=== PATIENT | female | born 1975 | race Caucasian/White ===

== ENCOUNTER 2020-06-05 07:15 | Inpatient (IN) | payer OTHER, SELFPAY ==
--- NOTE | ~2020-06-05 | CT_ITS ---
EXAMINATION: CT ABDOMEN AND PELVIS WITH CONTRAST CLINICAL INFORMATION: Upper abdominal pain COMPARISON: December 18, 2017 TECHNIQUE: Multidetector volumetric images were obtained from the superior aspect of the liver through the pubic symphysis following administration 85 mL of Omnipaque 350 intravenous contrast. Sagittal and coronal reformatted images were obtained on the technologist's workstation. Oral contrast: No This CT examination was performed using dose optimization techniques as appropriate, variously including the following: *Automated exposure control *Adjustment of mA and/or kV according to patient size (this includes techniques or standardized protocols for targeted exams where dose is matched to indication/reason for exam; i.e. extremities or head) *Use of iterative reconstruction technique DLP: 474 mGy-cm FINDINGS: LUNG BASES: No pneumothorax or pleural effusion seen. There is a small fluid collection seen adjacent to the right pericardium measuring approximately 1.4 x 1.3 cm in size which may represent a pericardial cyst. LIVER, GALLBLADDER, AND BILIARY TREE: The liver is normal in size, shape, and attenuation. Liver is prominent at 18 cm in vertical span. No focal hepatic lesion or biliary ductal dilatation is present. The gallbladder is unremarkable with no evidence of radiopaque gallstones, gallbladder wall thickening, or obvious pericholecystic inflammatory changes. PANCREAS: Unremarkable. SPLEEN: Unremarkable. ADRENAL GLANDS: Unremarkable. KIDNEYS AND URETERS: The kidneys are normal in size, shape, and attenuation. No hydronephrosis, hydroureter, or calculi seen. No perinephric stranding. BLADDER: Unremarkable. GASTROINTESTINAL TRACT: No dilated loops of large or small bowel are evident. No free air or free fluid is seen. There is no evidence of acute diverticulitis. The appendix is visualized and appears unremarkable. There is some mild hazy density seen within the mesentery near the region of the origin of the celiac axis of uncertain etiology or significance. ABDOMINAL WALL: No significant hernia is appreciated. LYMPH NODES: No lymphadenopathy is appreciated. VASCULAR: The portal, splenic, superior mesenteric, and inferior mesenteric no abdominal aortic aneurysm. PELVIC VISCERA: Unremarkable. OSSEOUS STRUCTURES: No suspicious destructive bony lesions identified. There is sacralization of L5. CT/CT abdomen pelvis w con IMPRESSION: No evidence of ileus or obstruction. No evidence of acute pancreatitis or acute cholecystitis. Mild hazy density about the origin of the celiac axis which may be related to small focus of mesenteritis or possible prominence of the celiac plexus of uncertain significance.
--- NOTE | ~2020-06-05 | XR_ITS ---
EXAMINATION: XR CHEST CLINICAL INFORMATION: Chest pain COMPARISON: None TECHNIQUE: Frontal view of the chest was obtained. FINDINGS: No significant abnormality is noted involving the heart, lungs, mediastinum, bony thorax or soft tissues. XR/XR chest 1V IMPRESSION: Unremarkable chest examination.
[2020-06-05 07:21] VITALS: BP 144/72; PULSE 94; RESP 20; TEMP 36.6; O2SAT 99; BMI 23.1
--- NOTE | 2020-06-05 07:29 | ED.GENADULT ---
HPI - General Adult General Chief complaint: General Medical Stated complaint: CHEST PAIN Time Seen by Provider: 06/05/20 07:29 Source: patient Mode of arrival: ambulatory Limitations: no limitations Related Data Allergies Allergy/AdvReac Type Severity Reaction Status Date / Time No Known Allergies Allergy Unverified 11/11/19 15:08 [No Known Allergies*] Physical Exam Vital Signs: Vital Signs: Last Vital Signs Temp 98 F 06/05/20 07:21 Pulse 94 06/05/20 07:21 Resp 20 06/05/20 07:21 BP 144/72 H 06/05/20 07:21 Pulse Ox 99 06/05/20 07:21 Body Mass Index 23.1
--- NOTE | 2020-06-05 07:37 | ECG_ITS ---
Test Reason : CP Blood Pressure : / mmHG Vent. Rate : 082 BPM Atrial Rate : 082 BPM P-R Int : 132 ms QRS Dur : 082 ms QT Int : 376 ms P-R-T Axes : 080 075 068 degrees QTc Int : 439 ms Normal sinus rhythm Normal ECG No previous ECGs available Referred By: Neha Hanks Electronically Signed By:LYNN CHERRY
--- NOTE | 2020-06-05 07:45 | ED_ITS ---
HPI - Abdominal Pain General Chief Complaint: General Medical Stated Complaint: CHEST PAIN Time Seen by Provider: 06/05/20 07:29 Source: patient Mode of arrival: ambulatory Limitations: no limitations History of Present Illness HPI narrative: 45 yo female no sig PMH here with upper abdominal pain and burning in lower back c/o nausea no OCPs, no travel, no trauma no prior events of this MD elicited complaint: abdominal pain Pertinent past history: none Onset (ago): day(s) (2) Pain Consistency: constant Location: epigastric Severity: moderate Quality: fullness and burning Radiation: back Migration to: no migration Exacerbating factors: movement Relieving factors: nothing Associated symptoms: nausea Related Data Allergies Allergy/AdvReac Type Severity Reaction Status Date / Time No Known Allergies Allergy Unverified 11/11/19 15:08 [No Known Allergies*] Review of Systems Review of Systems Constitutional : No Weight loss, No Fever, No Chills ENT/Mouth : No sore throat, No Rhinorrhea Eyes: No Swelling, No Redness Cardiovascular : No Chest Pain, No SOB, NoEdema Respiratory : No Cough, No Sputum, No Wheezing Gastrointestinal : pos Nausea, no Vomiting, no Diarrhea, positive abdominal Pain, No Hematochezia, No Melena Genitourinary : No Dysuria, No Urinary Frequency, No Hematuria, No Urgency Musculoskeletal : No joint pain, No Myalgias, No Joint Swelling, pos back pain Skin : No Skin Lesions, No rash Neuro : No Weakness, No Numbness, No Dizziness, No Headache Psych : No Anxiety/Panic, No Depression Heme/Lymph: No Bruising, No Lymphadenopathy Endocrine : No Polyuria, No Polydipsia All other systems reviewed and are negative. Physical Exam Vital Signs: Vital Signs: Last Vital Signs Temp 98 F 06/05/20 07:21 Pulse 94 06/05/20 07:21 Resp 18 06/05/20 08:09 BP 144/72 H 06/05/20 07:21 Pulse Ox 99 06/05/20 07:21 Body Mass Index 23.1 Appearance: Alert. Oriented X3. No acute distress. Eyes: Pupils equal, round and reactive to light. ENT: Pharynx normal. Neck: Normal inspection. Neck supple. CVS: Normal heart rate and rhythm. Pulses normal. Respiratory: No respiratory distress. Breath sounds normal. Abdomen: Soft and moderate epigastric ttp no rebound or guarding Skin: Skin warm and dry. Normal skin color. Normal skin turgor. Extremities: No lower extremity edema. No calf ttp Neuro: Oriented X 3. No motor deficit. No sensory deficit. Course Course Course Narrative: discussed with Dr. Munguia given degree of pain - will see in ED 1040am Dr. Munguia will admit for pain control MDM - Abdominal Pain MDM Narrative Medical decision making narrative: 45 yo female no sig PMH reports upper abdominal pain and lower back pain without known injury or precipitating events - no b/b incontinence, no saddle anesthesia - no prior events like this she has tender epigastric area - at this time labs, UA, EKG, CXR, troponin x 1, IV morphine for pain, CT scan to evalute upper abdomen and pancreas, dispo per results and findings Differential Diagnosis Differential diagnosis: Likely abdominal pain, gastritis, pancreatitis and peptic ulcer disease Lab Data Result diagrams: 06/05/20 07:49 06/05/20 07:49 Labs: Lab Results 06/05/20 06/05/20 06/05/20 Range/Units 07:49 07:49 07:49 WBC 8.8 (4.8-10.8) X10*3/uL RBC 4.40 (4.20-5.50) X10*6/uL Hgb 13.4 (12.0-16.0) g/dl Hct 41.0 (37-47) % MCV 93.2 (80-98) fL MCH 30.5 (27.0-33.0) pg MCHC 32.7 (31.0-35.0) g/dl RDW 13.2 (11.0-16.0) % Plt Count 282 (160-400) X10*3/uL MPV 10.0 (9.4-12.3) fL Immature Gran % (Auto) 0.2 (0.0-0.4) % Neut % (Auto) 65.0 (45-73) % Lymph % (Auto) 24.9 (20-40) % [place] % (Auto) 7.1 (2-11) % Eos % (Auto) 1.7 (0-4) % Baso % (Auto) 1.1 (0-2) % Lymph # (Auto) 2.2 (1.2-4.9) X10*3/uL [place] # (Auto) 0.6 (0.1-1.2) X10*3/uL Eos # (Auto) 0.2 (0.0-0.4) X10*3/uL Baso # (Auto) 0.1 (0.0-0.2) X10*3/uL Abs Immat Gran (auto) 0.02 (0.00-0.03) X10*3/uL Absolute Neuts (auto) 5.7 (2.0-8.3) X10*3/uL Absolute Nucleated RBC 0.000 (0.0-0.012) X10*3/uL Nucleated RBC % (auto) 0.0 (0.0-0.2) /100WBC Hold Blue Top SEE NOTE Sodium 140 (135-145) mmol/L Potassium 4.2 (3.3-5.1) mmol/L Chloride 106 (96-108) mmol/L Carbon Dioxide 26 (22-29) mmol/L Anion Gap 12 (12-20) BUN 15 (9-16) mg/dL Creatinine 0.71 (0.5-1.4) mg/dL Estim Creat Clear Calc 91.6 Estimated GFR > 60 Random Glucose 97 (60-115) mg/dL Calcium 8.5 (8.4-10.2) mg/dL Magnesium 2.2 (1.6-2.6) mg/dL Total Bilirubin 0.2 (0.0-1.0) mg/dL Direct Bilirubin < 0.2 (0.0-0.5) mg/dL AST 14 (5-31) U/L ALT 13 (0-31) U/L Alkaline Phosphatase 63 (39-117) U/L Troponin I High Sens (<3.5-17.0) ng/L Total Protein 6.6 (6.5-8.0) g/dL Albumin 4.2 (3.5-5.0) g/dL Lipase 11 (8-78) U/L Urine Color Urine Appearance Urine pH (5.0-8.0) Ur Specific [place] (1.005-1.025) Urine Protein (NEG-TRACE) MG/DL Urine Glucose (UA) (NEG) MG/DL Urine Ketones (NEG) MG/DL Urine Blood (NEG) Urine Nitrite (NEG) Ur Leukocyte Esterase (NEG) Urine RBC (0) /HPF Urine WBC (0-4) /HPF Ur Squamous Epith Cells /LPF Urine Bacteria 06/05/20 06/05/20 Range/Units 07:49 08:08 WBC (4.8-10.8) X10*3/uL RBC (4.20-5.50) X10*6/uL Hgb (12.0-16.0) g/dl Hct (37-47) % MCV (80-98) fL MCH (27.0-33.0) pg MCHC (31.0-35.0) g/dl RDW (11.0-16.0) % Plt Count (160-400) X10*3/uL MPV (9.4-12.3) fL Immature Gran % (Auto) (0.0-0.4) % Neut % (Auto) (45-73) % Lymph % (Auto) (20-40) % [place] % (Auto) (2-11) % Eos % (Auto) (0-4) % Baso % (Auto) (0-2) % Lymph # (Auto) (1.2-4.9) X10*3/uL [place] # (Auto) (0.1-1.2) X10*3/uL Eos # (Auto) (0.0-0.4) X10*3/uL Baso # (Auto) (0.0-0.2) X10*3/uL Abs Immat Gran (auto) (0.00-0.03) X10*3/uL Absolute Neuts (auto) (2.0-8.3) X10*3/uL Absolute Nucleated RBC (0.0-0.012) X10*3/uL Nucleated RBC % (auto) (0.0-0.2) /100WBC Hold Blue Top Sodium (135-145) mmol/L Potassium (3.3-5.1) mmol/L Chloride (96-108) mmol/L Carbon Dioxide (22-29) mmol/L Anion Gap (12-20) BUN (9-16) mg/dL Creatinine (0.5-1.4) mg/dL Estim Creat Clear Calc Estimated GFR Random Glucose (60-115) mg/dL Calcium (8.4-10.2) mg/dL Magnesium (1.6-2.6) mg/dL Total Bilirubin (0.0-1.0) mg/dL Direct Bilirubin (0.0-0.5) mg/dL AST (5-31) U/L ALT (0-31) U/L Alkaline Phosphatase (39-117) U/L Troponin I High Sens < 3.5 (<3.5-17.0) ng/L Total Protein (6.5-8.0) g/dL Albumin (3.5-5.0) g/dL Lipase (8-78) U/L Urine Color STRAW Urine Appearance CLEAR Urine pH 6.5 (5.0-8.0) Ur Specific [place] 1.010 (1.005-1.025) Urine Protein NEG (NEG-TRACE) MG/DL Urine Glucose (UA) NEG (NEG) MG/DL Urine Ketones NEG (NEG) MG/DL Urine Blood TRACE (NEG) Urine Nitrite NEG (NEG) Ur Leukocyte Esterase NEG (NEG) Urine RBC 0-2 (0) /HPF Urine WBC 0-2 (0-4) /HPF Ur Squamous Epith Cells TRACE /LPF Urine Bacteria Not Reportable ECG Data Attestation: I personally reviewed and interpreted this ECG as follows: ECG interpretation date: 06/05/20 ECG interpretation time: 07:45 Interpretation: Rate: 82 Rhythm: NSR [place]: normal Normal P waves. Normal KRIS. Normal QRS complex. ST T wave : nonspecific, no HENRY qTC: normal prior studies: no acute ischemia The study has been interpreted contemporaneously by me. . Discharge Plan Discharge Clinical Impression: Abdominal pain Patient Disposition: Admitted As Inpatient [facility] [place] Past Medical History Attestation statement: The following information was validated with the patient. Medical History (Updated 06/05/20 @ 12:29 by Neha Hanks DO) No active medical problems Surgical History (Updated 06/05/20 @ 07:48 by Neha Hanks DO) S/P panniculectomy Social History Social History Alcohol intake: never Smoking Status: Former smoker Use of substances other than those prescribed or required for medical reasons: No Advance Directives: Yes Advance Directives Information Provided: Yes Advance Directives on File: No
[2020-06-05 07:56] LABS: MANUAL DIFF FLAG NO
[2020-06-05 07:57] LABS: Basophils Absolute Auto 0.1 X10*3/uL (0.0-0.2); Basophils Percent Auto 1.1 % (0-2); Eosinophils Absolute Auto 0.2 X10*3/uL (0.0-0.4); Eosinophils Percent Auto 1.7 % (0-4); Hemoglobin 13.4 g/dl (12.0-16.0); Imm Gran Abs Auto 0.02 X10*3/uL (0.00-0.03); Imm Gran Pct Auto 0.2 % (0.0-0.4); Lymphocytes Absolute Auto 2.2 X10*3/uL (1.2-4.9); Lymphocytes Percent Auto 24.9 % (20-40); Mean Corpuscular HGB Conc 32.7 g/dl (31.0-35.0); Mean Corpuscular Hemoglobin 30.5 pg (27.0-33.0); Mean Corpuscular Volume 93.2 fL (80-98); Monocytes Absolute Auto 0.6 X10*3/uL (0.1-1.2); Monocytes Percent Auto 7.1 % (2-11); Neutrophils Absolute Auto 5.7 X10*3/uL (2.0-8.3); Platelet Count 282 X10*3/uL (160-400); Red Cell Distribution Width 13.2 % (11.0-16.0); White Blood Count 8.8 X10*3/uL (4.8-10.8)
[2020-06-05 08:09] VITALS: RESP 18
[2020-06-05] MEDS: 0.9 % Sodium Chloride 1,000 ML 999 ML IVCONT (08:09)
[2020-06-05] MEDS: Famotidine/PF 20 MG/2 ML VIAL IVPUSH (08:09)
[2020-06-05] MEDS: Morphine Sulfate 4 MG/ML CARTRIDGE IVPUSH (08:09)
[2020-06-05] MEDS: ondansetron HCL 4 MG/2 ML VIAL IVPUSH (08:09)
[2020-06-05 08:30] LABS: Glucose Urine UA NEG (NEG); Leukocyte Esterase Urine NEG (NEG); Nitrite Urine NEG (NEG); PH 6.5 (5.0-8.0); Urine Blood TRACE (NEG); Urine Ketones NEG (NEG); Urine Protein NEG (NEG-TRACE)
[2020-06-05 08:30] LABS: Alanine Aminotransferase 13 U/L (0-31); Albumin Level 4.2 g/dL (3.5-5.0); Alkaline Phosphatase 63 U/L (39-117); Anion Gap 12 (12-20); Aspartate Amino Transferase 14 U/L (5-31); Bilirubin Direct < 0.2 mg/dL (0.0-0.5); Bilirubin Total 0.2 mg/dL (0.0-1.0); Blood Urea Nitrogen 15 mg/dL (9-16); Calcium 8.5 mg/dL (8.4-10.2); Carbon Dioxide 26 mmol/L (22-29); Chloride 106 mmol/L (96-108); Creatinine Clr Calc Pharmacy 91.6; Estimated Glomerular Filt Rate > 60; Glucose Random 97 mg/dL (60-115); Lipase 11 U/L (8-78); Magnesium 2.2 mg/dL (1.6-2.6); Potassium 4.2 mmol/L (3.3-5.1); Sodium 140 mmol/L (135-145); Total Protein 6.6 g/dL (6.5-8.0); Troponin-I High Sensitivity < 3.5 ng/L (<3.5-17.0)
[2020-06-05 08:36] LABS: Appearance Urine CLEAR; Color Urine STRAW
[2020-06-05 08:52] LABS: RBC Urine 0-2 /HPF (0); Squamous Epithelial Cell Urine TRACE /LPF; WBC Urine 0-2 /HPF (0-4)
[2020-06-05] MEDS: iohexoL 350 MG/ML 100 ML INFUS..BTL IV (09:33)
[2020-06-05] MEDS: LORazepam 2 MG/ML VIAL 1 MG IVPUSH (10:28)
[2020-06-05] MEDS: Ketorolac Tromethamine 30 MG/ML VIAL IVPUSH (10:47)
--- NOTE | 2020-06-05 12:55 | PM.HPGS ---
History of Present Illness History of Present Illness Date of Service: 06/05/20 Chief complaint: CHEST PAIN Narrative: Roseline Harris is a 45 year old female who says she is otherwise healthy, who was had upper abdominal pain radiating to the back for the past 48 hours. She says that this is not constant. She describes periodic episodes lasting for about 5-10 minutes. This has been happening however without relief. She therefore decided to come to the emergency room early this morning. She describes the pain as mostly in the upper abdomen. She denies any nausea or vomiting. She denies any diarrhea constipation. She says she has never had any similar episodes of pain in the past. She says the episodes are not related oral intake. Review of Systems Constitutional: Constitutional: Denies chills and Denies fever(s) Cardiovascular: Cardiovascular: Denies chest pain, Denies dyspnea and Denies dyspnea on exertion Respiratory: Respiratory: Denies cough, Denies dyspnea and Denies dyspnea on exertion Gastrointestinal: Gastrointestinal: Denies hematochezia and Denies change in bowel habits Genitourinary: Genitourinary: Denies hematuria Musculoskeletal: Musculoskeletal: Denies back pain and Denies limited range of motion Neurologic: Denies focal weakness and Denies convulsions Psychiatric: Psychiatric: Denies depression and Denies mood swings PMFSH Past Medical History Medical History No active medical problems Surgical History Surgical History (Updated 06/05/20 @ 12:57 by Chester Munguia MD) S/P panniculectomy Status post abdominoplasty Social History Social History Alcohol intake: never Smoking Status: Former smoker Use of substances other than those prescribed or required for medical reasons: No Advance Directives: Yes Advance Directives Information Provided: Yes Advance Directives on File: No Meds Allergies Allergy/AdvReac Type Severity Reaction Status Date / Time No Known Allergies Allergy Unverified 11/11/19 15:08 [No Known Allergies*] Active Medications: Current Medications Generic Name Dose Route Start Last Admin Trade Name Freq PRN Reason Stop Dose Admin Pharmacy Consult 1 each 06/05/20 12:28 Consult Rx Perform Med Rec MISCELLANE ONCE PRN Consult order Physical Exam Vital Signs: Vital Signs: Last Vital Signs Temp 98 F 06/05/20 07:21 Pulse 94 06/05/20 07:21 Resp 18 06/05/20 08:09 BP 144/72 H 06/05/20 07:21 Pulse Ox 99 06/05/20 07:21 Body Mass Index 23.1 Const: General: comfortable and no acute distress Orientation/consciousness: patient oriented x3 Neck: Neck: Yes no lymphadenopathy Resp: Auscultation: clear to auscultation bilaterally Cardio: Rhythm: regular rhythm GI: Other: Some tenderness on the upper part of the abdomen, no rebound or guarding Palpation (GI): Soft to palpation, Tenderness to palpation present (GI) and no guarding Neuro: General: patient oriented x3 Results Results Labs: Short CBC 06/05/20 Range/Units 07:49 WBC 8.8 (4.8-10.8) X10*3/uL Hgb 13.4 (12.0-16.0) g/dl Hct 41.0 (37-47) % Plt Count 282 (160-400) X10*3/uL BMP 06/05/20 07:49 Sodium 140 Potassium 4.2 Chloride 106 Carbon Dioxide 26 BUN 15 Creatinine 0.71 Calcium 8.5 Liver Function 06/05/20 Range/Units 07:49 Total Bilirubin 0.2 (0.0-1.0) mg/dL Direct Bilirubin < 0.2 (0.0-0.5) mg/dL AST 14 (5-31) U/L ALT 13 (0-31) U/L Alkaline Phosphatase 63 (39-117) U/L Albumin 4.2 (3.5-5.0) g/dL Urine 06/05/20 Range/Units 08:08 Urine Color STRAW Urine Appearance CLEAR Urine pH 6.5 (5.0-8.0) Ur Specific [place] 1.010 (1.005-1.025) Urine Protein NEG (NEG-TRACE) MG/DL Urine Glucose (UA) NEG (NEG) MG/DL Assessment and Plan (1) Abdominal pain: Qualifiers: Abdominal location: epigastric Qualified Code(s): R10.13 - Epigastric pain Status: Acute She describes periodic pain on the upper abdomen radiating to the back for the past 48 hours. She had a CAT scan done showing suggestion of inflammatory changes around the mesentery near the area of the celiac axis. There is no other acute pathology seen on review of her CT scan. She has no leukocytosis. She have significant pain so I offered her the option of being admitted for observation because of her significant pain. She wanted to stay and be admitted at least overnight. I assured her about the benign findings on the CAT scan. I will repeat her CBC tomorrow. We will keep her on clear liquids in the meantime.
[2020-06-05] MEDS: Lactated Ringers 1,000 ML 80 ML IVCONT (13:14)
[2020-06-05 13:18] VITALS: BP 120/63; PULSE 63; RESP 16; O2SAT 98
[2020-06-05 13:55] LABS: COVID-19 Test Negative (Negative)
[2020-06-05 15:14] VITALS: BP 123/63; PULSE 72; RESP 16; O2SAT 99
--- NOTE | 2020-06-05 16:53 | PM.EVENT ---
Event Note Date of Service: 06/05/20 Event Note: Seen on afternoon rounds Says she is comfortable Has some periods of crampy abdominal pain Abdomen remained soft no guarding or rebound Stable vital signs On clear liquids Possibly advance diet tomorrow morning if she continues do well tonight Daughter was with her at bedside
--- NOTE | 2020-06-05 18:31 | PC.NURSE ---
pt requesting to leave, gi migration agent contacted.
[2020-06-05 18:34] VITALS: RESP 18
[2020-06-05] MEDS: Morphine Sulfate 2 MG/ML CARTRIDGE IVPUSH (18:34)
--- NOTE | 2020-06-05 18:43 | PC.NURSE ---
kenzie contacted d/t head of sales promotion not being aw
--- NOTE | 2020-06-05 18:44 | PC.NURSE ---
md espino contacted d/t onion tier not being aware of pt. md espino states to document pt request and ama form will be signed.
[2020-06-05 19:40] VITALS: BP 120/54; PULSE 61; RESP 18; TEMP 36.6; O2SAT 96
[2020-06-06 01:51] VITALS: BP 107/45; PULSE 63; RESP 15; O2SAT 96
[2020-06-06] MEDS: Lactated Ringers 1,000 ML 80 ML IVCONT (01:53)
[2020-06-06] MEDS: 0.9 % Sodium Chloride Flush 3 ML SYRINGE IVFLUSH (01:55)
--- NOTE | 2020-06-06 03:59 | PC.NURSE ---
patient is anxious about being in the hospital, does not like taking the pain medication and wants to speak with a doctor to speak about the plan
[2020-06-06] MEDS: Acetaminophen 325 MG TABLET 650 MG PO (04:13)
[2020-06-06 07:27] LABS: Hematocrit 37.8 % (37-47); Hemoglobin 12.3 g/dl (12.0-16.0); Mean Corpuscular HGB Conc 32.5 g/dl (31.0-35.0); Mean Corpuscular Hemoglobin 30.5 pg (27.0-33.0); Mean Corpuscular Volume 93.8 fL (80-98); Mean Platelet Volume 10.3 fL (9.4-12.3); Platelet Count 270 X10*3/uL (160-400); Red Blood Count 4.03 X10*6/uL (4.20-5.50); Red Cell Distribution Width 13.2 % (11.0-16.0); White Blood Count 8.8 X10*3/uL (4.8-10.8)
[2020-06-06 08:00] VITALS: BP 126/59; PULSE 62; RESP 19; TEMP 36.4; O2SAT 96
--- NOTE | 2020-06-06 08:35 | PM.PNGS ---
Subjective Subjective Date of Service: 06/06/20 Interval history: says she feels much better states her abdl pain is practically resolved want to eat, says she feels she is ready to go home Physical Exam Vital Signs: Vital Signs: Last Vital Signs Temp 97.6 F 06/06/20 08:00 Pulse 62 06/06/20 08:00 Resp 19 06/06/20 08:00 BP 126/59 L 06/06/20 08:00 Pulse Ox 96 06/06/20 08:00 Body Mass Index 23.1 Laboratory Results - last 24 hr 06/05/20 06/05/20 06/06/20 08:08 13:25 07:00 WBC 8.8 RBC 4.03 L Hgb 12.3 Hct 37.8 MCV 93.8 MCH 30.5 MCHC 32.5 RDW 13.2 Plt Count 270 MPV 10.3 Absolute Nucleated RBC 0.000 Nucleated RBC % (a uto) 0.0 Urine Color STRAW Urine Appearance CLEAR Urine pH 6.5 Ur Specific Gravit y 1.010 Urine Protein NEG Urine Glucose (UA) NEG Urine Ketones NEG Urine Blood TRACE Urine Nitrite NEG Ur Leukocyte Anitra ase NEG Urine RBC 0-2 Urine WBC 0-2 Ur Squamous Epith Cells TRACE Urine Bacteria Not Reportable COVID-19 ([facility]) Negative COVID-19 Clin Com See Note Const: General: comfortable and no acute distress Resp: Effort & Inspection: normal respiratory effort GI: Inspection: No distended Palpation (GI): Soft to palpation, not firm, nontender and no guarding Progress Note: A&P Assessment and plan (1) Abdominal pain: Status: Acute Assessment and Plan: Ct showed mestenric inflammation currently feels much better no tenderness exam very benign no leukocytosis diet as tolerated likely home today Fall Risk Details Current Medications: Current Medications Generic Name Dose Route Start Last Admin Trade Name Freq PRN Reason Stop Dose Admin Acetaminophen 650 mg 06/05/20 12:59 06/06/20 04:13 Acetaminophen 325 Mg Tablet PO 650 mg Q6H PRN Administration Fever Heparin Sodium (Porcine) 5,000 unit 06/05/20 13:00 06/06/20 01:55 Heparin Sodium,Porcine 5,000 Unit/Ml Vial SUBCUT Not Given Q12H ABIGAIL Lactated Ringer's 1,000 mls @ 80 mls/hr 06/05/20 13:00 06/06/20 01:53 Lr IVCONT 80 mls/hr .[id number] ABIGAIL Administration Morphine Sulfate 2 mg 06/05/20 12:59 06/05/20 18:34 Morphine Sulfate 2 Mg/Ml Cartridge IVPUSH 2 mg Q4H PRN Administration Pain, Severe (Pain Scale 7-10) Pharmacy Consult 1 each 06/05/20 12:28 Consult Rx Perform Med Rec MISCELLANE ONCE PRN Consult order Sodium Chloride 3 ml 06/05/20 16:00 06/06/20 01:55 0.9 % Sodium Chloride Flush 3 Ml Syringe IVFLUSH 3 ml QSHIFT ABIGAIL Administration Time Spent With Patient Time: Total time spent is greater than 50% in coordination of care (as documented) at patient's floor/unit and/or counseling patient: Time with patient: 15 - 24 minutes
[2020-06-06] MEDS: oxyCODONE HCl Immed Release 5 MG TABLET PO (10:26)
--- NOTE | 2020-06-06 11:29 | MHC.CM.PN ---
NURSE CAR AUDIO INSTALLER NOTE ELECTRONIC MEDICAL RECORD REVIEWED ALONG WITH CASE DISCUSSED WITH STAFF NURSE , MET WITH PATIeNT AND HER ADULT DAUGHTER REMAINED PRESENT WITH THIS ASSESSMENT PER PATIENT . SHE LIVES ALONE, SHE IS ACTIVE , INDEPENDENT IN ALL ADLS AND MOBILITY WITH NOT ANY DEVICES . 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 educated about the importance of having a health care proxy and completed one on this admission , original and 4 copies given to her , one placed in her chart discharge plan home no services pcp wally mata patient to call for post hospitla discharge follow up transportation family
--- NOTE | 2020-06-07 16:24 | PM.DS ---
DS: Providers Provider Date of Service: 06/07/20 Date of admission: 06/05/20 12:59 Primary care physician: Yarelis Mayes MD DS: Diagnosis Discharge Diagnosis (1) Abdominal pain: Status: Acute Problem details: 45-year-old female who was admitted by the emergency room on June 05, 2020 because of what she described as pain in the epigastric area and upper abdomen. She had a benign exam but her CAT scan showed some mild stranding of the mesentery consistent with mesenteritis. In view of what she initially describes severe pain, she was admitted. She did not have any leukocytosis. She was started on fluids for hydration, and was kept on clear liquids. She continued to do well during hospital stay as her diet was advanced. She described good improvement of her pain during the night. She tolerated regular food. She says later on June 06, that her pain had resolved so is a discharge. At the time of her discharge, she had remained afebrile and had a very benign exam. Follow-up CBC did not reveal any leukocytosis. DS: Medications Discharge Medications Home Medications: Home Medications Medication Instructions Recorded Confirmed ibuprofen 1 tab PO Q6H PRN 06/05/20 06/05/20 DS: Summary Time Spent with Patient Time attestation: Total time spent providing and/or coordinating discharge services: Discharge coordination time: Less than 30 minutes Physical Exam Vital Signs: Vital Signs: Last Vital Signs Temp 97.6 F 06/06/20 08:00 Pulse 62 06/06/20 08:00 Resp 19 06/06/20 08:00 BP 126/59 L 06/06/20 08:00 Pulse Ox 96 06/06/20 08:00 Body Mass Index 23.1 Const: General: comfortable and no acute distress Orientation/consciousness: patient oriented x3 Neck: Neck: Yes no lymphadenopathy Resp: Auscultation: clear to auscultation bilaterally Cardio: Rhythm: regular rhythm GI: Palpation (GI): Soft to palpation, nontender and no guarding Neuro: General: patient oriented x3 Discharge Plan Discharge Patient Disposition: Home, Self-Care Discharge Diagnosis: Mesenteritis Referrals: Yarelis Mayes MD [Primary Care Provider] - Discharge Medications: Discontinued ibuprofen 800 mg tablet 1 tab PO Q6H PRN (Reason: pain) RF: 0 Discharge Orders: Discharge Order (Routine); Ordered 06/06/20 Ordered By: Chester Munguia Activity on Discharge: As tolerated Stand Alone Forms: Patient Portal Discharge page Activity Restrictions/Additional Instructions: diet as tolerated ffup with PCP Care Plan Goals: ffup with primary care physician Health Concerns: abdominal pain low back pain Plan of Treatment: ffup with PCP ok to use NSAIDS OTC for low back pain Assessment: abdominal pain, resolved, likely mesenteritis Discharge Date/Time: 06/06/20 13:40
== END 2020-06-06 13:40 | disposition home or self-care (01) | DRG 395 ==
LOC: HO.ED 12:29 → HO.EDOVER 13:44 → HO.S3 06-06 07:06
PROVIDERS: Admitting Provider Surgery; Emergency Provider Emergency Medicine; PCP Internal Medicine; Visit Provider Surgery
DX: K66.9 Disorder of peritoneum, unspecified (principal); Z20.822 Contact with and (suspected) exposure to COVID-19; Z87.891 Personal history of nicotine dependence
CPT/HCPCS: 36415; 71045; 74177; 80048; 80076; 81001; 83690; 83735; 84484; 85025; 85027; 87635; 93005; 96374; 96375; 99218; 99285; J1885; J2060; J2270; J2405; Q9967